=== PATIENT | female | born 1965 | race African-American/Black ===

== ENCOUNTER 2017-02-11 12:35 | Outpatient (CLI) | payer OTHER ==
[2017-02-11 14:36] LABS: #Basophils 0.1 thou/uL (0.0-0.2); #Eosinphils 0.2 thou/uL (0.0-0.7); #Lymphocytes 2.3 thou/uL (1.20-3.40); #Monocytes 0.7 thou/uL (0.11-0.59); #Neutrophils 4.2 thou/uL (1.40-6.50); %Basophils 1.1 % (0.0-1.0); %Eosinophils 2.5 % (0.0-10.0); %Lymphocytes 30.7 % (21.0-51.0); %Monocytes 9.3 % (0.0-10.0); %Neutrophils 56.5 % (42.0-75.0); Hemoglobin 14.5 g/dL (12.0-16.0); Mean Corpuscular HGB CONC 32.4 g/dL (32.0-36.0); Mean Corpuscular Hemoglobin 29.8 pg (27.0-31.0); Mean Corpuscular Volume 91.9 fl (81.0-99.0); Mean Platelet Volume 7.5 fL (7.4-10.4); Platelet Count 339 thou/uL (130-400); Red Blood Cell (RBC) Count 4.87 mill/uL (4.20-5.40); White Blood Cell (WBC) Count 7.4 thou/uL (4.8-10.8)
[2017-02-11 14:50] LABS: ALT (SGPT) 19 U/L (8-55); AST (SGOT) 21 U/L (5-34); Albumin 3.9 g/dL (3.5-5.0); Alkaline Phosphatase 75 U/L (40-150); Anion Gap 11 mmol/L (10-20); BUN (Urea Nitrogen) 13 mg/dL (7.0-18.7); Bilirubin, Total 0.5 mg/dL (0.2-1.2); Calc. Creatinine Clearance 0 mL/min (70-130); Calcium 9.3 mg/dL (7.8-10.44); Carbon Dioxide 29 mmol/L (22-29); Cardiac Risk 4.9 (Less than 4.5); Chloride 102 mmol/L (98-107); Cholesterol 267 mg/dl (< 200 Desired); Estimated GFR-MDRD 55; Globulin 3.9 g/dL (2.4-3.5); Glucose 89 mg/dL (70-105); HDL Cholesterol 54 mg/dL (>60 Neg Risk); LDL Cholesterol, Calculated 174 mg/dL; Protein, Total 7.8 g/dL (6.0-8.3); Sodium 138 mmol/L (136-145); Triglycerides 195 mg/dL (Less than 150)
[2017-02-11 21:36] LABS: Bilirubin Negative (Negative); Blood, Urine Negative (Negative); Glucose, Urine (Dipstick) Negative (Negative); Leukocyte Negative (Negative); Nitrite Negative (Negative); Protein, Urine (Dipstick) 100 mg/dL (Neg-Trace); Specific Gravity, Urine 1.015 (1.005-1.030); Urobilinogen 0.2 mg/dL (0.2-1.0)
[2017-02-11 21:59] LABS: Clarity SL HAZY (Clear)
[2017-02-11 22:46] LABS: Bacteria/HPF 1+ HPF (None Seen); Squamous Epithelial 0-3 HPF (0-3)
== END 2017-02-11 12:36 | disposition home or self-care (01) ==
LOC: NAV ULT 12:35
PROVIDERS: ATTEND Internal Medicine
DX: I11.9 Hypertensive heart disease without heart failure (principal)
CPT/HCPCS: 80053; 80061; 81003; 81015; 84443; 85025

== ENCOUNTER 2017-05-21 13:00 | Emergency (ER) | payer OTHER ==
[2017-05-21] MEDS ORDERED: predniSONE 20 MG TAB ONE (13:10)
[2017-05-21] MEDS ORDERED: cloNIDine 0.2 MG TAB ONE (13:13)
--- NOTE | 2017-05-21 13:51 | RAD ---
PA AND LATERAL CHEST: Date: 05-21-17 History: Cough, congestion, flu-like symptoms. Comparison: 02-19-15 FINDINGS: Cardiac silhouette and pulmonary vasculature are within normal limits. Lungs remain clear. There has been no interval change from the prior study. IMPRESSION: No acute cardiopulmonary process. POS: [facility]
[2017-05-21] MEDS ORDERED: Albuterol Sulfate 2.5 mg/3 ml Neb ONE (14:46)
[2017-05-21] MEDS ORDERED: Albuterol Sulfate 2.5 mg/0.5 ml Neb ONE ×2 (14:47→14:48)
== END 2017-05-21 16:22 | disposition home or self-care (01) ==
LOC: NAV ERS 13:00
DX: J20.9 Acute bronchitis, unspecified (principal); I10 Essential (primary) hypertension; B34.9 Viral infection, unspecified; E78.5 Hyperlipidemia, unspecified; F32.9 Major depressive disorder, single episode, unspecified; F41.9 Anxiety disorder, unspecified; Z79.899 Other long term (current) drug therapy
CPT/HCPCS: 71020; 94640; 94644; J7506; J7611; J7620

== ENCOUNTER 2017-09-23 00:03 | Emergency (ER) | payer OTHER, SELFPAY ==
--- NOTE | 2017-09-23 08:04 | RAD ---
Left wrist 3 views: HISTORY: Left wrist injury with pain. FINDINGS: On the lateral view, there is a small fragment seen dorsally which is suggestive of a triquetral frac ture. Carpals appear normally aligned. No other abnormality identified. IMPRESSION: Small fragment seen dorsally on the lateral view suggestive of a triquetral fracture. The findings were related to ER physician, Dr. Naik in [place] [facility], at the time of dictation. CODE CR POS: [facility]
== END 2017-09-23 00:54 | disposition home or self-care (01) ==
LOC: NAV ERS 00:03
DX: S60.212A Contusion of left wrist, initial encounter (principal); I16.0 Hypertensive urgency; E78.5 Hyperlipidemia, unspecified; F41.9 Anxiety disorder, unspecified; F32.9 Major depressive disorder, single episode, unspecified; Z79.899 Other long term (current) drug therapy; W22.8XXA Striking against or struck by other objects, initial encounter; Y92.69 Other specified industrial and construction area as the place of occurrence of the external cause; Y99.0 Civilian activity done for income or pay

== ENCOUNTER 2018-07-03 20:05 | Emergency (ER) | payer BC, SELFPAY ==
[2018-07-03] MEDS ORDERED: Ondansetron ODT 4 MG TAB ONE (20:54)
== END 2018-07-03 21:05 | disposition home or self-care (01) ==
LOC: NAV ERS 20:05
DX: K52.9 Noninfective gastroenteritis and colitis, unspecified (principal); I10 Essential (primary) hypertension; E78.5 Hyperlipidemia, unspecified; F41.9 Anxiety disorder, unspecified; F32.9 Major depressive disorder, single episode, unspecified; Z79.899 Other long term (current) drug therapy
CPT/HCPCS: 99283; Q0162

== ENCOUNTER 2019-03-12 09:00 | Outpatient (CLI) | payer BC ==
--- NOTE | 2019-03-12 14:06 | CT ---
CT OF THE ABDOMEN AND PELVIS WITH IV AND ENTERIC CONTRAST: INDICATION: History of ventral abdominal wall hernia with a history of prior surgery and mesh placement. COMPARISON: CTA of the abdomen and pelvis dated 07/10/2018. FINDINGS: There are some patchy reticulonodular opacities seen within the lateral right middle lobe. There is a small hiatal hernia. There is fatty infiltration of the liver. The pancreas, adrenal glands, and kidneys appear within no rmal limits. The spleen is normal-appearing. No free fluid or enlarged lymph nodes are evident. There is a superior and anterior upper ventral abdominal wall hernia with enlargement also measuring approximately 10.3 cm which appeared stable to the prior exam. The hernia contains portions of the t ransverse colon and unobstructed loops of small bowel as well as omental fat. The hernia in its cran iocaudad dimension measures 17.7 cm. The bladder and perirectal soft tissues appear within normal limits. The small bowel is of normal ca liber. There is scattered degenerative and osteoarthritic change. No definite acute osseous abnormality is evident. IMPRESSION: 1. Stable large ventral abdominal wall hernia containing unobstructed loops of colon, small bowel, a nd omental fat. The largest mediolateral dimension of the large bowel ventral abdominal wall hernia is 10.3 cm. 2. Fatty liver. 3. Reticulonodularity of the right middle lobe may reflect sequelae of a bronchiolitis of infectiou s inflammatory etiology. Recommend correlation. POS: [facility]
== END 2019-03-12 09:01 | disposition home or self-care (01) ==
LOC: NAV CT 09:00
PROVIDERS: ATTEND Surgery
DX: Z01.812 Encounter for preprocedural laboratory examination (principal); K43.9 Ventral hernia without obstruction or gangrene; K76.0 Fatty (change of) liver, not elsewhere classified
CPT/HCPCS: 36415; 74177; 82565

== ENCOUNTER 2019-07-21 10:04 | Outpatient (CLI) | payer BC ==
[2019-07-21 10:39] LABS: #Basophils 0.1 thou/uL (0.0-0.2); #Eosinphils 0.2 thou/uL (0.0-0.7); #Lymphocytes 1.9 thou/uL (1.20-3.40); #Monocytes 0.5 thou/uL (0.11-0.59); #Neutrophils 4.2 thou/uL (1.40-6.50); %Basophils 1.2 % (0.0-1.0); %Eosinophils 2.3 % (0.0-10.0); %Lymphocytes 28.2 % (21.0-51.0); %Monocytes 6.7 % (0.0-10.0); %Neutrophils 61.6 % (42.0-75.0); Hemoglobin 13.4 g/dL (12.0-16.0); Mean Corpuscular HGB CONC 31.5 g/dL (32.0-36.0); Mean Corpuscular Hemoglobin 29.6 pg (27.0-31.0); Mean Corpuscular Volume 93.8 fL (78.0-98.0); Mean Platelet Volume 7.3 fL (7.4-10.4); Platelet Count 374 thou/uL (130-400); Red Blood Cell (RBC) Count 4.53 mill/uL (4.20-5.40); White Blood Cell (WBC) Count 6.8 thou/uL (4.8-10.8)
[2019-07-21 10:51] LABS: Anion Gap 14 mmol/L (10-20); BUN (Urea Nitrogen) 22 mg/dL (9.8-20.1); Calc. Creatinine Clearance 0 mL/min (70-130); Calcium 9.4 mg/dL (7.8-10.44); Carbon Dioxide 28 mmol/L (22-29); Chloride 102 mmol/L (98-107); Estimated GFR-MDRD 43; Glucose 124 mg/dL (70-105); Phosphorus 4.1 mg/dL (2.3-4.7); Potassium 3.9 mmol/L (3.5-5.1); Sodium 140 mmol/L (136-145)
[2019-07-21 10:56] LABS: Follow-up Chemistry Comp? YES; Follow-up Hematology Comp? YES; Follow-up Result - Chemistry REPORT FAXED; Follow-up Result - Hematology REPORT FAXED
== END 2019-07-21 10:05 | disposition home or self-care (01) ==
LOC: NAV LAB 10:04
PROVIDERS: ATTEND Internal Medicine Nephrology
DX: N18.3 Chronic kidney disease, stage 3 (moderate) (principal)
CPT/HCPCS: 80048; 83970; 84100; 85025

== ENCOUNTER 2019-07-27 03:48 | Emergency (ER) | payer BC | END 2019-07-27 04:43 | disposition home or self-care (01) | LOC: NAV ERS 03:48 | DX: J06.9 Acute upper respiratory infection, unspecified (principal); E78.00 Pure hypercholesterolemia, unspecified; F32.9 Major depressive disorder, single episode, unspecified; F41.9 Anxiety disorder, unspecified; I10 Essential (primary) hypertension; Z79.899 Other long term (current) drug therapy | CPT/HCPCS: 87804; 99283 ==

== ENCOUNTER 2020-02-12 14:21 | Emergency (ER) | payer BC, OTHER, SELFPAY ==
[2020-02-12] MEDS ORDERED: Ketorolac Tromethamine 60 MG/2 ML VIAL ONE (14:47)
== END 2020-02-12 15:22 | disposition home or self-care (01) ==
LOC: NAV ERS 14:21
DX: M54.6 Pain in thoracic spine (principal); I10 Essential (primary) hypertension; E78.00 Pure hypercholesterolemia, unspecified; F41.9 Anxiety disorder, unspecified; F32.9 Major depressive disorder, single episode, unspecified; F41.0 Panic disorder [episodic paroxysmal anxiety]; Z79.899 Other long term (current) drug therapy
CPT/HCPCS: 96372; 99283; J1885

== ENCOUNTER 2020-03-05 20:08 | Emergency (ER) | payer BC, OTHER ==
[2020-03-05] MEDS ORDERED: Aspirin Chewable 81 MG TAB ONE (20:47)
[2020-03-05 21:10] LABS: #Basophils 0.1 thou/uL (0.0-0.2); #Eosinphils 0.1 thou/uL (0.0-0.7); #Lymphocytes 2.5 thou/uL (1.20-3.40); #Monocytes 0.7 thou/uL (0.11-0.59); #Neutrophils 4.3 thou/uL (1.40-6.50); %Basophils 0.7 % (0.0-1.0); %Eosinophils 1.8 % (0.0-10.0); %Lymphocytes 32.3 % (21.0-51.0); %Monocytes 8.8 % (0.0-10.0); %Neutrophils 56.4 % (42.0-75.0); Hemoglobin 14.8 g/dL (12.0-16.0); Mean Corpuscular HGB CONC 31.8 g/dL (32.0-36.0); Mean Corpuscular Hemoglobin 29.7 pg (27.0-31.0); Mean Corpuscular Volume 93.4 fL (78.0-98.0); Mean Platelet Volume 7.8 fL (7.4-10.4); Platelet Count 329 thou/uL (130-400); RBC Distribution Width 13.5 % (11.5-14.5); Red Blood Cell (RBC) Count 4.98 mill/uL (4.20-5.40); White Blood Cell (WBC) Count 7.6 thou/uL (4.8-10.8)
[2020-03-05 21:20] LABS: INR-International Normal Ratio 0.9; PTT 25.8 sec (22.9-36.1); Prothrombin Time 12.2 sec (12.0-14.7)
--- NOTE | 2020-03-05 21:22 | CT ---
Exam: Head CT without contrast HISTORY: Left leg pain. COMPARISON: 07/09/2018 FINDINGS: Hemorrhage: No intraparenchymal hemorrhage or extra-axial hematoma. Brain parenchyma: Cortical ferguson-white matter differentiation is preserved. No mass effect or midline shift. Basilar cisterns are patent.Scattered white matter hypodensities involving the posterior right centrum semiovale, unchanged. Ventricular system: Ventricles and sulci are patent and symmetric. Calvarium: Intact. Sinuses and mastoid air cells: Adequate aeration. IMPRESSION: 1. No acute intracranial process. 2. Chronic small vessel ischemic changes involving the posterior right white matter.
[2020-03-05 21:40] LABS: ALT (SGPT) 24 U/L (8-55); AST (SGOT) 19 U/L (5-34); Alkaline Phosphatase 83 U/L (40-110); Anion Gap 15 mmol/L (10-20); BUN (Urea Nitrogen) 23 mg/dL (9.8-20.1); Bilirubin, Total 0.3 mg/dL (0.2-1.2); Calc. Creatinine Clearance 0 mL/min (70-130); Carbon Dioxide 24 mmol/L (22-29); Chloride 104 mmol/L (98-107); Estimated GFR-MDRD 47; Globulin 3.3 g/dL (2.4-3.5); Glucose 99 mg/dL (70-105); Potassium 3.7 mmol/L (3.5-5.1); Protein, Total 7.3 g/dL (6.0-8.3); Sodium 139 mmol/L (136-145)
[2020-03-05 21:56] LABS: CKMB 1.3 ng/mL (0-6.6)
== END 2020-03-05 22:15 | disposition short-term general hospital (02) ==
LOC: NAV ERS 20:08
DX: M62.81 Muscle weakness (generalized) (principal); E78.00 Pure hypercholesterolemia, unspecified; I10 Essential (primary) hypertension; F32.9 Major depressive disorder, single episode, unspecified; F41.9 Anxiety disorder, unspecified; Z79.899 Other long term (current) drug therapy
CPT/HCPCS: 36415; 70450; 80053; 82553; 84484; 85025; 85610; 85730; 93005

== ENCOUNTER 2020-05-02 14:31 | Emergency (ER) | payer OTHER ==
[2020-05-02] MEDS ORDERED: Silver Sulfadiazine 50 GM TUBE ONE (14:50)
== END 2020-05-02 15:03 | disposition home or self-care (01) ==
LOC: NAV ERS 14:31
DX: T21.22XA Burn of second degree of abdominal wall, initial encounter (principal); T31.0 Burns involving less than 10% of body surface; E78.00 Pure hypercholesterolemia, unspecified; I10 Essential (primary) hypertension; F41.9 Anxiety disorder, unspecified; F32.9 Major depressive disorder, single episode, unspecified; Z79.899 Other long term (current) drug therapy
CPT/HCPCS: 16025

== ENCOUNTER 2020-09-01 10:38 | Outpatient (CLI) | payer OTHER | END 2020-09-01 10:39 | disposition home or self-care (01) | LOC: NAV RAD 10:38 | PROVIDERS: ATTEND Internal Medicine Cardiovascular Disease | DX: R07.9 Chest pain, unspecified (principal) | CPT/HCPCS: 71046 ==

== ENCOUNTER 2021-01-26 04:01 | Emergency (ER) | payer OTHER | END 2021-01-26 08:00 | disposition E | LOC: NAV ERS 04:01 | DX: I46.9 Cardiac arrest, cause unspecified (principal); I10 Essential (primary) hypertension; I25.10 Atherosclerotic heart disease of native coronary artery without angina pectoris; Z79.899 Other long term (current) drug therapy | CPT/HCPCS: 92950 ==